=== PATIENT | female | born 1960 | race Caucasian/White ===

== ENCOUNTER 2016-12-04 18:05 | Observation (INO) | payer BC ==
[~2016-12-04] VITALS: Ht 158.8 cm; Wt 57.4 kg
--- NOTE | ~2016-12-04 | HP ---
PATIENT'S NAME: ROBIN [facility] AGE: 56 Y [address] ROOM: [place] [address] LOCATION: [facility] ADMIT DATE: 12/04/2016 History & Physical DISCHARGE DATE: FAMILY PHYSICIAN: PHYSICIAN, UNKNOWN ATTENDING PHYSICIAN: Evaristo MCRAE DATE OF SERVICE: CHIEF COMPLAINT: Near syncope and chest pain. HISTORY OF PRESENT ILLNESS: The patient is a previously healthy 56-year-old female. She was [place] in [place] early today. She developed a sudden onset of near syncope and diaphoresis. She also felt extremely overheated. She had to lie down and was tended to by local paramedics with cooling rugs, but continued to feel extremely weak; nauseated, but not vomiting; and very fatigued. She has a very "groggy" recollection of that. Eventually, she was taken on the ambulance and transported to the hospital in [place]. En route, the patient developed substernal chest pressure. Upon arriving at the hospital, her blood pressure was noted to be 190 systolic. She also complained of weakness and a concern was brought up about a CVA. However, her weakness was bilateral and was elicited in both upper and lower extremities. A full workup at [place] including a CT of her head, EKG, cardiac enzymes, BMP, and CBC were unremarkable. Eventually, the patient felt considerably better, but was transferred to [facility] for further workup. At this point, the patient still reports some fatigue, but she feels that her weakness has resolved and chest pain has gone away and she is approaching her baseline state of health. Of note, the patient has been having "head cold" and started using a non- decongestant Zyrtec and Rhinocort Nasal [place]. At this point, she denies any nausea, vomiting, shortness of breath, chest pain, or palpitations. REVIEW OF SYSTEMS: All systems have been reviewed and are negative aside from pertinent positives mentioned above. PAST MEDICAL HISTORY: She has very distant history of asthma. PATIENT'S NAME: ROBIN [facility] AGE: 56 Y [address] ROOM: [place] [address] LOCATION: [facility] ADMIT DATE: 12/04/2016 History & Physical DISCHARGE DATE: FAMILY PHYSICIAN: PHYSICIAN, UNKNOWN ATTENDING PHYSICIAN: Evaristo MCRAE SURGICAL HISTORY: Appendectomy in high school. SOCIAL HISTORY: The patient denies any history of tobacco use. Very sparse social alcohol use. FAMILY HISTORY: Significant for late onset coronary artery disease in both parents. CURRENT MEDICATIONS: None. PHYSICAL EXAMINATION: VITAL SIGNS: Blood pressure 174/96, heart rate is in the 80s, saturating 96% on room air, afebrile, and respirations are 16. GENERAL: Well-developed, well-nourished, middle-aged female, in no acute distress. NEUROLOGIC: A detailed neurological exam is nonfocal. EYES: Show pupils are equal and reactive to light. LYMPHATIC: Shows no cervical lymphadenopathy. ENDOCRINE: Shows no thyromegaly. LUNGS: Clear to auscultation in all gay. HEART: Heart rate is regular. No appreciable murmurs, gallops, or rubs. VASCULAR: Exam reveals no carotid bruits and 2+ pedal pulses bilaterally. GI: Abdomen is soft and nontender. : No costovertebral angle tenderness. MUSCULOSKELETAL: Unremarkable. SKIN: Warm and dry. PSYCHIATRIC: Appropriate mood, cognition, and affect. REVIEW OF STUDIES: As per HPI. ASSESSMENT AND PLAN: 1. This is a 56-year-old female, who is going to be admitted for workup of near syncope and chest pain. She really does not have any risk factors for coronary artery disease or cerebrovascular disease. She will be monitored overnight. We will obtain an EKG as well as another set of cardiac enzymes and a lipid profile in the morning. We will do a treadmill stress test in the morning. We will also get a 2-dimensional echocardiogram. Given the concern for cerebrovascular accident at the outside facility, we will consider a stroke workup as well. If the above workup is negative, we will get her home. 2. Complains of allergic rhinitis. We will start her on Flonase spray. PATIENT'S NAME: MICKEY KELLY [facility] AGE: 56 Y [address] ROOM: [address] [place], [place] [address] LOCATION: [facility] ADMIT DATE: 12/04/2016 History & Physical DISCHARGE DATE: FAMILY PHYSICIAN: PHYSICIAN, UNKNOWN ATTENDING PHYSICIAN: Evaristo MCRAE 3. Additional management will depend on clinical course. Time dedicated to this patient encounter is 35 minutes. MD GIOVANNI CLEMENTE/elis /[id number] D: [id number] T: [id number] HISTORY & PHYSICAL
--- NOTE | ~2016-12-04 | ECHO ---
Transthoracic Echocardiography Report (TTE) Demographics Patient Name MICKEY KELLY Date of Study 12/05/2016 Patient Number [id number] Visit Number [id number] Date of 1960 Room Number G6226 Accession Number [id number] Gender Female Age 56 year(s) Referring Hydroponics Worker Diandra Stinson [facility] Physician Physician Interpreting Dylon Mills Crane Service Technician Physician MD Supervising Ordering Physician Dylon Mills MD/MLP Nurse Stress Tech Writer Conclusions Contractility Score Summary Normal Left Ventricular contractility was noted. Summary Normal LV/RV size and systolic function. The estimated left ventricular ejection fraction is 60-65%. Mild concentric left ventricular hypertrophy. Diastolic assessment reveals Grade I diastolic dysfunction. No significant valvular abnormalities. Procedure Type of Study TTE procedure:2D Echocardiogram. Procedure Date Date: 12/05/2016 Start: 10:47 AM Study Location: Echo Lab Technical Quality: Adequate visualization Indications:TIA. Additional Indications:Also c/o Chest pain Appropriate Use Criteria: 9 Patient Status: Routine Contrast Medium: Definity. Amount - 2 ml HR: 87 bpm BP: 184/90 mmHg M-Mode/2D Measurements LV Diastolic Dimension: 3.31 cm LV Systolic Dimension: 2.38 cm LV Septum Diastolic: 1.26 cm LV PW Diastolic: 1.23 cm AO Root Dimension: 2.3 cm Cardiac Output: 4.59 l/min AV Cusp Separation: 1.4 cm RV Diastolic Dimension: 2.69 cm LA volume: 37 ml LVOT: 2 cm RV Base: 3.1 cm LVOT VTI: 16.8 cm RV Mid: 2.27 cm LV Stroke volume: 52.75 ml TAPSE: 2.1 cm TDI-S': 14 cm/s Doppler Measurements AV Peak Velocity: 1.3 m/s MV Peak E-Wave: 0.54 m/s AV Peak Gradient: 6.76 mmHg MV Peak A-Wave: 0.84 m/s AV Mean Gradient: 3 mmHg MV E/A Ratio: 0.65 LVOT Peak Velocity: 1 m/s MV P1/2t: 45 msec TR Gradient:6.15 mmHg PV Peak Velocity: 0.9 m/s Estimated RAP:10 mmHg PV Peak Gradient: 3.2 mmHg Estimated RVSP: 16 mmHg Estimated PASP: 16.15 mmHg E' Septal Velocity: 0.05 m/s A' Septal Velocity: 0.07 m/s E' Lateral Velocity: 0.07 m/s A' Lateral Velocity: 0.12 m/s Findings Left Ventricle Mild to moderate concentric left ventricular hypertrophy. Diastolic assessment reveals Grade I diastolic dysfunction. Right Ventricle Normal right ventricle structure and function. Left Atrium Normal left atrial size. Right Atrium Normal right atrial size. IVC measures 1.67 cm with inspiratory collapse. Mitral Valve Trivial mitral regurgitation by color Doppler. Aortic Valve Normal aortic valve structure and function. Tricuspid Valve Trivial tricuspid regurgitation by color Doppler. Pulmonic Valve Normal pulmonic valve structure and function. Pericardial Effusion No evidence of pericardial effusion. Epicardial fat pad noted. Pleural Effusion No evidence of pleural effusion. Contractility Score LV regional wall motion:(0-Non visualized 1-Normal 2-Hypokinesis 3-Akinesis 4-Dyskinesis 5-Aneurysm) Signature dtt: DEAN SCHAFFER dtd: 12/05/16 1047 Physician Self Edit
--- NOTE | ~2016-12-04 | DS ---
PATIENT'S NAME: MICKEY KELLY [facility] AGE: 56 Y [address] ROOM: [address] [place], [place] [address] LOCATION: T ADMIT DATE: 12/04/2016 Discharge Summary DISCHARGE DATE: 12/05/2016 FAMILY PHYSICIAN: Physician, Unknown ATTENDING PHYSICIAN: Nicholas Loera PRINCIPAL DIAGNOSES: 1. Atypical chest pain. 2. New diagnosis of prediabetes. 3. New diagnosis of hypertension. HOSPITAL COURSE: A 56-year-old lady with no significant past medical history, was admitted to the [facility] with near syncope as well as chest pain. She was transferred to our facility for further medical care. On initial evaluation, she was found to be in hypertensive urgency. Her blood pressure was lowered. EKG was done, which did not reveal any acute ST-T wave changes. Troponin levels, 3 sets were negative. D-dimer was done in this hospitalization, which was negative for her age. Chest x-ray was done, did not reveal any acute cardiopulmonary process. A CAT scan and MRI of the head was done due to the suspicion of stroke, which returned negative. Echocardiography was done, which did not show any abnormality. Given the symptoms, a nuclear stress testing was done, which was negative, but the patient got really short of breath on the treadmill. However, steamer gum candy recommended doing a catheterization on her given her symptoms and possibility of being a false negative stress testing. The patient declined to do that over here and wants to be discharged from the hospital, and she wants to follow upwith the primary care physician, Dr. Marcus. She was also told about her prediabetes. She agrees to start lifestyle modification including diet and exercise. Pharmacotherapy will be deferred to the primary care physician. She was also found to be having high cholesterol level in this hospitalization. She was offered statin therapy, but she declined secondary to allergies in her mom. Her cholesterol level was 214, triglycerides 185, HDL was 41, and LDL was 136. She will be discharged home on amlodipine 10 mg p.o. once daily, and we will advise her to follow up with the primary care physician. DISCHARGE MEDICATIONS: Include, 1. Cetirizine 10 mg p.o. every day. 2. Triamcinolone, Nasacort spray, 1 spray nose every day. 3. Norvasc 10 mg p.o. every day. ACTIVITY: As tolerated. DIET: As tolerated. PATIENT'S NAME: MICKEY KELLY [facility] AGE: 56 Y [address] ROOM: [address] [place], [place] [address] LOCATION: [facility] ADMIT DATE: 12/04/2016 Discharge Summary DISCHARGE DATE: 12/05/2016 FAMILY PHYSICIAN: Physician, Unknown ATTENDING PHYSICIAN: Nicholas Loera MD KRYSTIAN SCOTT/elis /[id number] d: 12/06/16 0302 t: 12/12/16 1323, DISCHARGE SUMMARY
--- NOTE | ~2016-12-04 | ESTC ---
Cardiac Perfusion Imaging Demographics Patient Name ROBIN AREVALO Gender Female Patient Number [id number] Race Visit Number [id number] Ethnicity or Corporate ID Room Number G6226 Accession Number [id number] Height 52 inches Date of 1960 Weight 126 pounds Interpreting Dylon Mills Date of study 12/05/2016 Physician Supervising /ROBINP Dylon Mills NM Technologist Kerline Porter MD Ordering Physician Luciano Espinosa MD energy conservation technician Stress ECG Reading [facility] Lina Nurse Kenny Del Rio MD The procedure was explained in detail to the patient. Risks, complications and alternative treatments were reviewed. Written consent was obtained. Medications Reviewed with Patient prior to Procedure. Procedure Procedure Type: Nuclear Stress Test:Exercise, Cardiolite Stress Test Procedure Start time: 12/05/2016 10:40 Indications: TIA. Conclusions Summary Perfusion Images: The overall quality of the study is fair, due to gastrointestinal tracer uptake. Left ventricular cavity is noted to be normal on the stress and normal on the rest images. There is no evidence of abnormal lung activity. The right ventricle is not visualized an cannot be assessed. Impression ECG portion of exercise stress test is clinically negative for ischemia by diagnostic criteria. Patient achieved METS 6.4 and Double product of 30,551. The Ceron Treadmill Score was 5. This corresponds to a low risk stress test. Myocardial perfusion imaging reveals mild perfusion defect in the mid anterior wall, likely breast attenuation, can not exclude mild ischemia. The anterior wall matched defect is consistent with soft tissue attenuation. Overall left ventricular systolic function was normal without regional wall motion abnormalities. Calculated LVEF is 73% and TID ratio is 1.01. There are no previous studies for comparison . Stress Protocols Resting ECG NSR Pre-stress physical exam: s1 s2, rrr clear lungs Stress Protocol:Exercise Peak HR:137 bpm HR response: Appropriate Peak BP:223/106 mmHg BP response: Appropriate Predicted HR: 166 bpm HR/BP product:87577 % of predicted HR: 83 Max exercise: 6.4 METS ECG Findings No ECG changes suggestive of ischemia. Arrhythmias No rhythm abnormality. Symptoms Shortness of breath. Fatigue. Stress Interpretation The electrocardiographic portion of the stress test was negative for ischemia. METS 6.4. Double product 30,551. Blood pressure response was normal, heart rate response was normal for exertion. The Ceron Treadmill Score was 5. This corresponds to a low risk stress test. Imaging Results Applied corrections - Motion correction applied High risk findings Summed scores - Summed stress score: 3 - Summed rest score: 0 - Summed difference score: 3 Stress ejection Ejection fraction:72 % EDV :58 ml ESV :16 ml Stroke volume :42 ml LV mass :98 gr Imaging Protocols Rest Stress Isotope:Tc99m Sestamibi IV Isotope: Tc99m Sestamibi IV Isotope dose:10.3 mCi Date:12/05/2016 10:43 Date:12/05/2016 09:18 Technique: SPECT Technique: Gated Supine SPECT Supine IV remains in place after procedure. Scan Time:45-60 minutes post Scan Time:45-60 minutes post injection injection Procedure Medications - Regadenoson (Lexiscan) 0.4 mg IV over 10-15 sec. I.V. . Medications administered per verbal order and read back to physician prior to administration. Medical History Admission Data Admission date: 12/04/2016 Admission Time: 19:53 Hospital Status: Inpatient. Signatures dtt: LINA SCHAFFER dtd: 12/05/16 1040 Physician Self Edit
--- NOTE | 2016-12-05 00:17 | NUR ---
Patient arrived to floor at 1999 via direct admission from [facility]. Patient went to [facility] [facility] prior to arrival for c/o chest heaviness and syncope episode. Cardiac enzymes WNL and CT scan (-) for intracranial hemorrhage or any other abnormalities. Patient has no medical history and takes daily control and prn zyrtec and prn nasocort at home. Allergies to percocet and levaquin. IV to R)hand on arrival. Chest x-ray also normal in [place].
--- NOTE | 2016-12-05 05:16 | NUR ---
Significant Event: Arrived to floor at 1999 from [facility]. Patient had chest heaviness and a syncope episode. Hypertensive 192/92 on admission and most recent bp 147/89. NS running at 100ml/hr and to run for 12 hours total through right hand IV. A/Ox3 and denies numbness or tingling. NIHSS 0. at the bedside. NPO since midnight for MRI without contrast today and stress test. CT scan done yesterday was negative. Follow up: [place] nuclear stress test, 2-d echo & MRI of brain today
[2016-12-05] MEDS ORDERED: BLISOVI FE 1-21 EACH PO ×2 (08:51→15:04)
[2016-12-05] MEDS ORDERED: NASACORT16.9 ML NOSE (08:52)
[2016-12-05] MEDS ORDERED: ZYRTEC10 MG PO ×2 (08:52→15:05)
--- NOTE | 2016-12-05 09:34 | NUR ---
Significant Event:Up in room with standby assist. at bedside. SBP 160'S. Denies pain or pressure. HR regular, 70's. NIHSS zero. MRI and stress test completed. States just tired and weak. Drinking and eating fair. IV in Right hand. A/O x3. Follow up:If test are negative will go home today.
[2016-12-05] MEDS ORDERED: NORVASC10 MG PO (15:07)
--- NOTE | 2016-12-05 15:39 | NUR ---
Significant Event: Alert and oriented. Ambulates with standby assist. Tests negative DC orders competed By Dr. Griffin. When discharing patient BP was 199/117, HR 82. 100% on RA. Denies any SOA, Dizziness, or chest pain however does state she has a dull headache. Layed back in bed. Will hold off in DC for time being. BP q 30min. Follow up:
== END 2016-12-05 17:37 | disposition disaster alternative care site (69) ==
LOC: GNTU 18:05
PROVIDERS: ADMIT Internal Medicine
DX: R07.89 Other chest pain (principal); R73.03 Prediabetes; I10 Essential (primary) hypertension; J30.9 Allergic rhinitis, unspecified; Z79.899 Other long term (current) drug therapy; Z90.49 Acquired absence of other specified parts of digestive tract
CPT/HCPCS: A9500; C8929; G0378; J7030; J7050; Q9957